=== PATIENT | female | born 1970 | race Caucasian/White ===

== ENCOUNTER 2023-02-05 08:10 | Outpatient (CLI) | payer BC, SELFPAY | END 2023-02-05 08:11 | disposition home or self-care (01) | LOC: NFLDREF 02-07 07:55 | PROVIDERS: PCP Physician Assistant Medical; Referring Provider Physician Assistant Medical; Visit Provider Physician Assistant Medical | DX: E66.01 Morbid (severe) obesity due to excess calories (principal); R63.2 Polyphagia; R53.83 Other fatigue; Z13.1 Encounter for screening for diabetes mellitus; Z13.6 Encounter for screening for cardiovascular disorders; Z68.41 Body mass index [BMI] 40.0-44.9, adult | CPT/HCPCS: 80053; 80061; 82043; 82570; 84443 ==

== ENCOUNTER 2023-04-27 11:37 | Outpatient (CLI) | payer BC, SELFPAY ==
--- NOTE | 2023-04-27 08:55 | W.ANESCHARGE ---
Anesthesia Charges Start Date/Time Anesthesia Start Date: 04/27/23 Anesthesia Start Time: 12:50 Stop Date/Time Anesthesia Stop Date: 04/27/23 Anesthesia Stop Time: 13:45
--- NOTE | 2023-04-27 13:48 | W.ANESCHARGE ---
Anesthesia Charges Start Date/Time Anesthesia Start Date: 04/27/23 Anesthesia Start Time: 12:50 Stop Date/Time Anesthesia Stop Date: 04/27/23 Anesthesia Stop Time: 13:45
== END 2023-04-27 11:38 | disposition home or self-care (01) ==
PROVIDERS: PCP Family Medicine; Visit Provider Surgery
DX: Z86.010 Personal history of colon polyps (principal); K44.9 Diaphragmatic hernia without obstruction or gangrene; K63.5 Polyp of colon; K62.1 Rectal polyp; K57.30 Diverticulosis of large intestine without perforation or abscess without bleeding; Z15.09 Genetic susceptibility to other malignant neoplasm
CPT/HCPCS: 00813; 43235; 45385; 88305; J2704

== ENCOUNTER 2023-11-23 14:21 | Outpatient (CLI) | payer BC, SELFPAY | END 2023-11-23 14:22 | disposition home or self-care (01) | PROVIDERS: PCP Family Medicine; Visit Provider Family Medicine | DX: R73.03 Prediabetes (principal); I10 Essential (primary) hypertension; G25.81 Restless legs syndrome; Z13.0 Encounter for screening for diseases of the blood and blood-forming organs and certain disorders involving the immune mechanism | CPT/HCPCS: 80053; 82043; 82570; 82728; 83735 ==

== ENCOUNTER 2024-12-08 14:27 | Outpatient (CLI) | payer BC, SELFPAY | END 2024-12-08 14:28 | disposition home or self-care (01) | PROVIDERS: PCP Family Medicine; Visit Provider Family Medicine | DX: R74.01 Elevation of levels of liver transaminase levels (principal); R73.03 Prediabetes; I10 Essential (primary) hypertension; E66.01 Morbid (severe) obesity due to excess calories; D12.6 Benign neoplasm of colon, unspecified; N95.1 Menopausal and female climacteric states; Z13.6 Encounter for screening for cardiovascular disorders; Z13.1 Encounter for screening for diabetes mellitus; Z11.59 Encounter for screening for other viral diseases | CPT/HCPCS: 80053; 80061; 82043; 82570; 83001; 86803 ==

== ENCOUNTER 2025-01-02 12:21 | Outpatient (CLI) | payer BC, SELFPAY ==
[2025-01-04 06:31] LABS: HPV Source Endocervical; HPV, High Risk by TMA Not Detected
== END 2025-01-02 12:22 | disposition home or self-care (01) ==
PROVIDERS: PCP Family Medicine; Visit Provider Family Medicine
DX: Z12.4 Encounter for screening for malignant neoplasm of cervix (principal)
CPT/HCPCS: 87624; 87625; 88141; 88142

== ENCOUNTER 2025-01-09 08:29 | Outpatient (CLI) | payer BC, SELFPAY ==
--- NOTE | 2025-01-09 09:14 | P.ANES_ITS ---
Anesthesia Charges Start Date/Time Anesthesia Start Date: 01/09/25 Anesthesia Start Time: 09:22 Stop Date/Time Anesthesia Stop Date: 01/09/25 Anesthesia Stop Time: 10:05 Coding CPT Codes CPT Codes: ANES UPR LWR GI NDSC PX - 13164 ([id number]) P2 - PATIENT W/MILD SYST DISEASE, QK - WICK TENDER 2-4 CNCRNT ANES PROC, QX - CURRICULUM FACILITATOR SVC W/ MD MED DIRECTION
--- NOTE | 2025-01-09 09:14 | W.ANESCHARGE ---
Anesthesia Charges Start Date/Time Anesthesia Start Date: 01/09/25 Anesthesia Start Time: 09:22 Stop Date/Time Anesthesia Stop Date: 01/09/25 Anesthesia Stop Time: 10:05 Coding CPT Codes CPT Codes: ANES UPR LWR GI NDSC PX - 53034 ([id number]) P2 - PATIENT W/MILD SYST DISEASE, QK - DEMI CHEF 2-4 CNCRNT ANES PROC, QX - STOCKLAYER SVC W/ MD MED DIRECTION
--- NOTE | 2025-01-09 10:09 | P.ANES_ITS ---
Anesthesia Charges Start Date/Time Anesthesia Start Date: 01/09/25 Anesthesia Start Time: 09:22 Stop Date/Time Anesthesia Stop Date: 01/09/25 Anesthesia Stop Time: 10:05 Coding CPT Codes CPT Codes: ANES UPR LWR GI NDSC PX - 33978 ([id number]) P2 - PATIENT W/MILD SYST DISEASE, QX - PIPELINES SUPERINTENDENT SVC W/ MD MED DIRECTION, QK - SURVEY RESEARCH ANALYST 2-4 CNCRNT ANES PROC
--- NOTE | 2025-01-09 10:09 | W.ANESCHARGE ---
Anesthesia Charges Start Date/Time Anesthesia Start Date: 01/09/25 Anesthesia Start Time: 09:22 Stop Date/Time Anesthesia Stop Date: 01/09/25 Anesthesia Stop Time: 10:05 Coding CPT Codes CPT Codes: ANES UPR LWR GI NDSC PX - 91933 ([id number]) P2 - PATIENT W/MILD SYST DISEASE, QX - LAN ANALYST SVC W/ MD MED DIRECTION, QK - FLEXO FOLDER GLUER OPERATOR 2-4 CNCRNT ANES PROC
== END 2025-01-09 08:30 | disposition home or self-care (01) ==
LOC: OP CLINIC 08:30
PROVIDERS: PCP Family Medicine; Visit Provider Surgery
DX: Z12.11 Encounter for screening for malignant neoplasm of colon (principal); D12.0 Benign neoplasm of cecum; K57.30 Diverticulosis of large intestine without perforation or abscess without bleeding; Z86.0100 Personal history of colon polyps, unspecified; K22.89 Other specified disease of esophagus; K44.9 Diaphragmatic hernia without obstruction or gangrene
CPT/HCPCS: 00813; 43239; 45385; 88305; J2704; J3010

== ENCOUNTER 2025-02-21 15:18 | Outpatient (CLI) | payer BC, SELFPAY ==
--- NOTE | 2025-02-21 15:22 | CRLHL7_ITS ---
For Patients: As a result of the Century Cures Act, medical imaging exams and procedure reports are released immediately into your electronic medical record. You may view this report before your referring provider. If you have questions, please contact your health care provider. INDICATION: BILATERAL SCREENING MAMMOGRAM, ASYMPTOMATIC 54 Y/O FEMALE COMPARISON: 07/25/21, 10/05/18, 02/15/16 TECHNIQUE: CC and MLO views were obtained. These mammographic images have been obtained using full-field digital technique. These mammographic images were interpreted with the benefit of computer aided detection and tomosynthesis. BREAST COMPOSITION: There are scattered areas of fibroglandular density. FINDINGS: No suspicious findings. ASSESSMENT: BI-RADS 1 Negative RECOMMENDATION: Annual screening mammogram. A lay language report of this examination will be provided to the patient. Dictated by: Zach Everett MD @ 02/24/2025 12:38:00 (Electronically Signed)
== END 2025-02-21 15:19 | disposition home or self-care (01) ==
LOC: MAMMO 15:19
PROVIDERS: PCP Family Medicine; Visit Provider Family Medicine
DX: Z12.31 Encounter for screening mammogram for malignant neoplasm of breast (principal)
CPT/HCPCS: 77063; 77067